=== PATIENT | male | born 1955 ===

== ENCOUNTER 2021-01-04 14:03 | Emergency (ER) | payer OTHER ==
[~2021-01-04] VITALS: Ht 177.8 cm; Wt 86.2 kg
[2021-01-04] MEDS ORDERED: NORVASC10 MG (14:16)
[2021-01-04] MEDS ORDERED: CRESTOR40 MG PO (14:17)
[2021-01-04] MEDS ORDERED: TENORMIN25 MG PO (14:17)
[2021-01-04] MEDS ORDERED: ECOTRIN81 MG PO (14:17)
[2021-01-04] MEDS ORDERED: FENOFIBRIC ACI105 MG (14:17)
== END 2021-01-04 16:57 | disposition home or self-care (01) ==
LOC: ER 14:03
DX: S52.592A Other fractures of lower end of left radius, initial encounter for closed fracture (principal); W01.198A Fall on same level from slipping, tripping and stumbling with subsequent striking against other object, initial encounter; Y93.89 Activity, other specified; Y92.018 Other place in single-family (private) house as the place of occurrence of the external cause; Y99.8 Other external cause status

== ENCOUNTER 2021-04-18 07:38 | Outpatient (CLI) | payer OTHER ==
[~2021-04-18 07:38] MED LIST: CRESTOR40 MG PO; ECOTRIN81 MG PO; FENOFIBRIC ACI105 MG; NORVASC10 MG; TENORMIN25 MG PO
== END 2021-04-18 07:43 | disposition home or self-care (01) ==
LOC: NUCLEAR 07:38
PROVIDERS: ATTEND Internal Medicine Endocrinology, Diabetes & Metabolism
DX: E21.3 Hyperparathyroidism, unspecified (principal)
CPT/HCPCS: 78070; A9500

== ENCOUNTER 2021-08-29 08:47 | Outpatient (CLI) | payer OTHER | END 2021-08-29 08:50 | disposition home or self-care (01) | LOC: SONOGRAMA 08:47 | PROVIDERS: ATTEND Pathology Anatomic Pathology & Clinical Pathology | DX: D34 Benign neoplasm of thyroid gland (principal); E04.8 Other specified nontoxic goiter ==